=== PATIENT | male | born 1955 | race Two or more races ===

== ENCOUNTER → 2018-06-24 | Day surgery (SDC) | payer OTHER ==
[~2018-06-24] MED LIST: ATENOLOL50 MG PO; COZAAR100 MG PO; NEURONTIN300 MG PO; PAXIL20 MG PO; PRILOSEC OTC20 MG PO; SYNTHROID50 MCG PO
== END | disposition home or self-care (01) ==
LOC: ADM 06-22 15:15 → CIR.AMB 05:40 → EDBD 15:15 → CIR.AMB 15:15
DX: C20 Malignant neoplasm of rectum (principal)
CPT/HCPCS: 36561; C1751

== ENCOUNTER 2018-11-17 12:00 | Inpatient (IN) | payer OTHER ==
[~2018-11-17] VITALS: Ht 177.8 cm; Wt 83.5 kg
[2018-11-17] MEDS ORDERED: PERCO (14:41)
[2018-11-17] MEDS ORDERED: FENTANY (14:42)
[2018-11-17] MEDS ORDERED: TRAZODONE HCL50 MG PO (15:15)
[2018-11-26] MEDS ORDERED: FENTANYL1 EAC1 (15:56)
[2018-11-26] MEDS ORDERED: PERCOCET 10-321 EACH PO (15:57)
== END 2018-11-27 18:46 | disposition home or self-care (01) | DRG 333 ==
LOC: O/R 11-24 11:39 → SURG 11-24 11:39 → SURH 11-24 12:00 → SURG 11-24 22:03
PROVIDERS: ADMIT Colon & Rectal Surgery
PROC: 07TC4ZZ Resection of Pelvis Lymphatic, Percutaneous Endoscopic Approach (ICD-10-PCS; 2018-11-24)
PROC: 0DTP4ZZ Resection of Rectum, Percutaneous Endoscopic Approach (ICD-10-PCS; principal; 2018-11-24 14:00)
PROC: 30233N1 Transfusion of Nonautologous Red Blood Cells into Peripheral Vein, Percutaneous Approach (ICD-10-PCS; 2018-11-25)
DX: C20 Malignant neoplasm of rectum (principal); D62 Acute posthemorrhagic anemia; I10 Essential (primary) hypertension; E03.8 Other specified hypothyroidism

== ENCOUNTER 2019-11-02 17:58 | Inpatient (IN) | payer OTHER ==
[~2019-11-02] VITALS: Ht 177.8 cm; Wt 97.1 kg
[~2019-11-02 17:58] MED LIST changes: +FENTANY; +FENTANYL1 EAC1; +PERCO; +PERCOCET 10-321 EACH PO; +TRAZODONE HCL50 MG PO
== END 2019-11-30 15:57 | disposition home or self-care (01) | DRG 329 ==
LOC: ER 17:58 → SURG 19:09 → SURH 19:09 → SEC-K 19:09 → SURG 11-03 00:45 → SURH 11-07 16:03 → ICU 11-18 21:30 → SURH 11-25 18:22
PROVIDERS: ADMIT Colon & Rectal Surgery
PROC: 02HV33Z Insertion of Infusion Device into Superior Vena Cava, Percutaneous Approach (ICD-10-PCS; 2019-11-02)
PROC: 0BH17EZ Insertion of Endotracheal Airway into Trachea, Via Natural or Artificial Opening (ICD-10-PCS; 2019-11-02)
PROC: 5A1955Z Respiratory Ventilation, Greater than 96 Consecutive Hours (ICD-10-PCS; 2019-11-02)
PROC: 4A12X4Z Monitoring of Cardiac Electrical Activity, External Approach (ICD-10-PCS; 2019-11-02)
PROC: 0W9J3ZX Drainage of Pelvic Cavity, Percutaneous Approach, Diagnostic (ICD-10-PCS; 2019-11-05)
PROC: 0DNW4ZZ Release Peritoneum, Percutaneous Endoscopic Approach (ICD-10-PCS; 2019-11-17)
PROC: 0WQF4ZZ Repair Abdominal Wall, Percutaneous Endoscopic Approach (ICD-10-PCS; 2019-11-17)
PROC: 0DB84ZZ Excision of Small Intestine, Percutaneous Endoscopic Approach (ICD-10-PCS; principal; 2019-11-17 17:00)
PROC: 5A1955Z Respiratory Ventilation, Greater than 96 Consecutive Hours (ICD-10-PCS; 2019-11-18)
PROC: 4A033R1 Measurement of Arterial Saturation, Peripheral, Percutaneous Approach (ICD-10-PCS; 2019-11-23)
DX: C78.5 Secondary malignant neoplasm of large intestine and rectum (principal); J96.01 Acute respiratory failure with hypoxia; I21.A1 Myocardial infarction type 2; I50.21 Acute systolic (congestive) heart failure; D62 Acute posthemorrhagic anemia; T81.40XA Infection following a procedure, unspecified, initial encounter; T81.44XA Sepsis following a procedure, initial encounter; C78.00 Secondary malignant neoplasm of unspecified lung; K43.3 Parastomal hernia with obstruction, without gangrene; K56.51 Intestinal adhesions [bands], with partial obstruction; I11.0 Hypertensive heart disease with heart failure; F43.8 Other reactions to severe stress

== ENCOUNTER 2020-06-05 23:36 | Inpatient (IN) | payer OTHER ==
[~2020-06-05] VITALS: Ht 30.5 cm; Wt 5.0 kg
--- NOTE | 2020-06-05 23:54 | NUR ---
SE RECIBE PACIENTE EN AMBULANCIA REFERIDO POR DR [place] SE MOMO S/V YUNIEL BAZAN EN AREA DE OBSERVACION
[2020-06-20] MEDS ORDERED: AMLODIPINE BESY10 MG PO (15:00)
[2020-06-20] MEDS ORDERED: CARVEDILOL12.5 MG PO (15:00)
[2020-06-20] MEDS ORDERED: LOSARTAN POTAS100 MG PO (15:00)
[2020-06-20] MEDS ORDERED: TRAZODONE HCL50 MG PO (15:01)
[2020-06-20] MEDS ORDERED: LEVOTHYROXINE50 MCG PO (15:01)
[2020-06-20] MEDS ORDERED: PAXIL20 MG PO (15:01)
[2020-06-20] MEDS ORDERED: MEDROLPACK PO (15:02)
[2020-06-20] MEDS ORDERED: KEPPRA500 MG PO (15:02)
== END 2020-06-20 20:59 | disposition home or self-care (01) | DRG 388 ==
LOC: ER 23:36 → MEDJ 06-06 00:37 → SURH 06-06 00:37 → MEDJ 06-06 02:19 → SURG 06-10 19:01 → SURH 06-19 17:49
PROVIDERS: ADMIT Colon & Rectal Surgery; ATTEND Colon & Rectal Surgery
PROC: 0DH67UZ Insertion of Feeding Device into Stomach, Via Natural or Artificial Opening (ICD-10-PCS; principal; 2020-06-06)
PROC: 3E0G76Z Introduction of Nutritional Substance into Upper GI, Via Natural or Artificial Opening (ICD-10-PCS; 2020-06-06)
PROC: BW21ZZZ Computerized Tomography (CT Scan) of Abdomen and Pelvis (ICD-10-PCS; 2020-06-07)
PROC: BW21Y0Z Computerized Tomography (CT Scan) of Abdomen and Pelvis using Other Contrast, Unenhanced and Enhanced (ICD-10-PCS; 2020-06-07)
DX: K56.699 Other intestinal obstruction unspecified as to partial versus complete obstruction (principal); J96.01 Acute respiratory failure with hypoxia; I21.4 Non-ST elevation (NSTEMI) myocardial infarction; J81.0 Acute pulmonary edema; I50.21 Acute systolic (congestive) heart failure; C20 Malignant neoplasm of rectum; C78.02 Secondary malignant neoplasm of left lung; C78.01 Secondary malignant neoplasm of right lung; C79.31 Secondary malignant neoplasm of brain; D62 Acute posthemorrhagic anemia; R18.0 Malignant ascites; I11.0 Hypertensive heart disease with heart failure; F43.22 Adjustment disorder with anxiety; Z20.828 Contact with and (suspected) exposure to other viral communicable diseases; F32.9 Major depressive disorder, single episode, unspecified